=== PATIENT | male | born 1960 | race Caucasian/White ===

== ENCOUNTER → 2018-11-23 11:52 | Outpatient (CLI) | payer OTHER, SELFPAY ==
--- NOTE | 2018-11-23 11:54 | DI.MRI.S_ITS ---
PROCEDURE: MR BRAIN (IAC) WWO CON INDICATIONS: Memory problems TECHNIQUE: Noncontrast sagittal T1 spin echo, axial FLAIR, axial gradient echo, axial diffusion and ADC through the brain. Axial thin-slice 3D CISS, coronal TruFISP, axial T1 spin echo with fat saturation through the internal auditory canals. After the administration of contrast, thin slice axial and coronal T1 spin echo with fat saturation through the internal auditory canals, and axial T1 spin echo with fat saturation through the brain. COMPARISON: None. FINDINGS: Image quality: Excellent. Cerebellopontine angles: No cerebellopontine angle masses. Inner ear structures appear normally formed. No suspicious enhancement in the internal auditory canal or along the course of the 7th cranial nerve. CSF spaces: Ventricles are normal in size and shape. No extra-axial fluid collections. Basal cisterns are patent. Brain: No intracranial bleeds or mass effects. Espitia-white matter interface is intact. No abnormal intracranial enhancement. Diffusion weighted images demonstrate no acute ischemic insults. No GRE weighted abnormalities identified in the brain parenchyma. Brainstem appears normal. Normal intravascular flow voids are present. Skull and face: Calvarial marrow signal is normal. Orbits appear normal. Sinuses: Mild mucosal thickening noted in the left maxillary sinus, the sphenoid sinuses bilaterally and the posterior ethmoid air cells. The mastoids are clear. IMPRESSION: 1. No evidence of vestibular schwannoma. 2. No intracranial disease process. 3. No abnormal intracranial signal or suspicious postcontrast enhancement. 4. No abnormal intracranial mass. Dictated by: Faye Rees MD, PhD on 11/23/2018 at 15:49 Approved by: Faye Rees MD, PhD on 11/23/2018 at 16:03
--- NOTE | 2018-11-23 11:54 | DI.US.S_ITS ---
PROCEDURE: US SCROTUM INDICATIONS: RIGHT TESTICULAR SWELLING TECHNIQUE: Real-time scanning was performed of the scrotum and testicles, with image documentation. Color and pulse Doppler interrogation was performed of both testicles. COMPARISON: None. FINDINGS: Right: Testicle is normal in size at 2.3 x 3.2 x 4.7 cm, and homogenous in echotexture. Epididymis is normal in overall size and morphology. No significant hydrocele or varicoceles. Overlying scrotal skin is normal in thickness. Blood hydrocele incidentally noted. Left: Testicle is normal in size at 2.0 x 3.0 x 4.8 cm, and homogeneous in echotexture. Epididymis is normal in overall size and morphology. No significant hydrocele or varicoceles. Overlying scrotal skin is normal in thickness. Slight hydrocele incidentally noted and several cysts are present at the epididymal head area measuring up to 6 mm. Doppler: Color and pulse Doppler demonstrate normal and symmetric arterial flow in both testicles. IMPRESSION: No sign of testicular torsion or mass lesion. No sign of epididymitis or orchitis. Slight hydroceles bilaterally, insignificant in quantity. Dictated by: Blade Bajwa M.D. on 11/23/2018 at 16:42 Approved by: Blade Bajwa M.D. on 11/23/2018 at 16:44
== END ==
PROVIDERS: PCP Family Medicine; Visit Provider Family Medicine
DX: R41.3 Other amnesia (principal); N50.89 Other specified disorders of the male genital organs
CPT/HCPCS: 70553; 76870; A9579

== ENCOUNTER → 2018-12-18 08:30 | Outpatient (CLI) | payer OTHER, SELFPAY ==
[2018-12-18 09:48] LABS: Appearance Urine UA CLEAR; Bilirubin Urine UA NEGATIVE (NEGATIVE); Color Urine UA YELLOW; Glucose Urine UA NEGATIVE (Negative); Ketones Urine UA TRACE (NEGATIVE); Leukocyte Esterase Urine UA NEGATIVE (NEGATIVE); Nitrite Urine UA NEGATIVE (Negative); Occult Blood Urine UA NEGATIVE (Negative); Protein Urine UA NEGATIVE (Negative); Urobilinogen Urine UA 0.2 E.U./dL (0.2)
[2018-12-18 09:49] LABS: Add Manual Diff / Slide Review NO; Basophils Absolute Auto 0 /uL (0-100); Eosinophils Absolute Auto 200 /uL (0-450); Eosinophils Percent Auto 3.9 % (2-4); Hematocrit 47.6 % (41-53); Hemoglobin 16.3 g/dL (13.5-17.5); Lymphocytes Absolute Auto 1500 /uL (1100-4500); Lymphocytes Percent Auto 30.5 % (25-40); Mean Corpuscular HGB Conc 34.2 % (30-36); Mean Corpuscular Hemoglobin 30.8 PG (26-34); Mean Corpuscular Volume 89.8 fL (80-100); Monocytes Absolute Auto 400 /uL (0-900); Monocytes Percent Auto 8.6 % (3-14); Neutrophils Absolute Auto 2800 /uL (1500-7000); Platelet Count 182 X10^3/uL (150-400); Red Cell Distribution Width 13.4 % (11.6-14.8); White Blood Cell Count 4.9 X10^3/uL (4.5-11.0)
[2018-12-18 10:22] LABS: Alanine Aminotransferase 45 IU/L (21-72); Albumin 4.3 g/dL (3.5-5.0); Albumin Globulin Ratio 1.5 (1.0-2.8); Alkaline Phosphatase 72 U/L (38-126); Aspartate Aminotransferase 24 IU/L (17-59); BUN Creatinine Ratio 18.9 (6-22); Bilirubin Total 0.6 mg/dL (0.2-1.3); Blood Urea Nitrogen 17 mg/dL (9-20); Calcium 9.1 mg/dL (8.4-10.2); Carbon Dioxide 25 mmol/L (22-32); Chloride 105 mmol/L (98-107); Cholesterol 142 mg/dL (140-199); Estimated Glomerular Filt Rate > 60.0 mL/min (>60); Globulin 2.9 g/dL (1.7-4.1); Glucose 98 mg/dL (70-100); HDL Cholesterol 49 mg/dL (40-60); HEMOLYSIS < 15 (0-50); LDL Cholesterol Calculated 84 mg/dL (<100); Potassium 4.1 mmol/L (3.4-5.1); Sodium 140 mmol/L (137-145); Total Protein 7.2 g/dL (6.3-8.2); Triglycerides 43 mg/dL (35-150)
[2018-12-18 10:47] LABS: Thyroid Stimulating Hormone 3.71 uIU/mL (0.47-4.68)
[2018-12-18 11:20] LABS: Folate 15.7 ng/mL (2.76-20.0); Vitamin B12 692 pg/mL (239-931)
== END ==
PROVIDERS: PCP Family Medicine; Visit Provider Family Medicine
DX: N50.9 Disorder of male genital organs, unspecified (principal); R41.3 Other amnesia; R42 Dizziness and giddiness; N50.89 Other specified disorders of the male genital organs; Z13.220 Encounter for screening for lipoid disorders; Z13.29 Encounter for screening for other suspected endocrine disorder; Z51.81 Encounter for therapeutic drug level monitoring
CPT/HCPCS: 36415; 80053; 80061; 81003; 82607; 82746; 84443; 85025

== ENCOUNTER 2019-02-02 08:51 | Day surgery (SDC) | payer OTHER, SELFPAY ==
[2019-02-02 09:30] VITALS: BP 126/76; PULSE 64; RESP 16; TEMP 36.2; O2SAT 97; BMI 28.7
[2019-02-02] MEDS: PROPARACAINE 0.5% OPHTH SOL 2 DROPS EYE-OP (09:38)
[2019-02-02] MEDS: CATARACT EYE COMPOUND (10 DROPS/SYRINGE) 3 DROPS EYE-OP (09:44)
--- NOTE | 2019-02-02 10:30 | PM.PREOP ---
Pre-operative Note Interval Note History & Physical reviewed/Exam performed by Physician: No Changes to H&P: No
--- NOTE | 2019-02-02 10:31 | PM.OP.1 ---
Operative Date/Time/Diagnoses Pre-op diagnosis: Nuclear cataract right eye Procedure & Clinicians Procedure: Cataract Surgery Same procedure as scheduled: Yes Surgeon: Ricki Holden Anesthesia Type: MAC +/- and Sedation Operative Notes Procedure in detail: Patient brought to the operating suite. Tetracaine drops placed in the right eye. Patient was prepped and draped in sterile manner. Wire lid speculum was placed in the eye. Betadine drops were placed on the eye. This was irrigated. Lidocaine jelly was placed on the eye. A paracentesis port was created with a side-port blade. 0.1 mL 1% preservative free lidocaine was injected into the anterior chamber. The anterior chamber was deepened with viscoelastic. 2.6 mm keratome was used to create a temporal clear corneal incision. Cystotome and Utrata forceps were used to create continuous tear capsulorrhexis. Balanced salt solution was used to hydro dissect the nucleus. The phacoemulsification handpiece was inserted and the nucleus was removed using the stop and chop technique. The irrigation aspiration handpiece was inserted and the remaining cortex was removed. Anterior chamber was deepened with viscoelastic. An [place] ZCB00 intraocular lens with a power of 18.0 was injected into the capsular bag. Irrigation aspiration handpiece was inserted and the remaining viscoelastic was removed. Incision was hydrated with balanced salt solution and found to be leak free with pressure with Weck-Janel sponges. 0.1 mL Vigamox injected anterior chamber. 0.3 mL Kenalog 10 mg was injected subconjunctivally. Lid speculum was removed. The patient left the operating room in excellent condition. Complications: none Condition: stable Disposition: same day surgery
[2019-02-02] MEDS: MOXIFLOXACIN OPHTH DROPS 3 ML BOTTLE 2 DROPS INJ (11:11)
[2019-02-02] MEDS: PHENYLEPHRINE/LIDOCAINE VIAL (OR) 0.2 ML EYE-OP (11:11)
[2019-02-02] MEDS: TRIAMCINOLONE 50 MG/5 ML VIAL INJ (11:11)
[2019-02-02] MEDS: CHONDROIDTIN/SOD HYALURONATE 1.05 ML SYRINGE INTRAOCULA (11:11)
[2019-02-02] MEDS: TETRACAINE 0.5% OPHTH DROPS 4 ML 2 DROPS EYE-OP (11:14)
[2019-02-02] MEDS: LIDOCAINE JELLY 2% 5 ML 1 APPLIC TOP (11:14)
[2019-02-02] MEDS: BALANCED SALT IRRIG SOLN NO.2 500 ML, EPINEPHrine 1 MG IRR (11:15)
[2019-02-02 11:40] VITALS: BP 126/83; PULSE 55; RESP 16; TEMP 36.5; O2SAT 96
== END 2019-02-02 11:35 ==
LOC: OR 08:53
PROVIDERS: PCP Family Medicine; Visit Provider Ophthalmology
DX: H25.11 Age-related nuclear cataract, right eye (principal); G47.30 Sleep apnea, unspecified; G43.909 Migraine, unspecified, not intractable, without status migrainosus
CPT/HCPCS: J0171; J2250; J3301

== ENCOUNTER 2019-03-02 12:39 | Day surgery (SDC) | payer OTHER, SELFPAY ==
[2019-03-02 13:43] VITALS: BP 123/80; PULSE 71; RESP 16; TEMP 36.6; O2SAT 98; BMI 29.5
[2019-03-02] MEDS: PROPARACAINE 0.5% OPHTH SOL 2 DROPS EYE-OP (13:54)
[2019-03-02] MEDS: CATARACT EYE COMPOUND (10 DROPS/SYRINGE) 3 DROPS EYE-OP (13:59)
--- NOTE | 2019-03-02 14:40 | PM.PREOP ---
Pre-operative Note Interval Note History & Physical reviewed/Exam performed by Physician: No Changes to H&P: No
--- NOTE | 2019-03-02 14:40 | PM.OP.1 ---
Operative Date/Time/Diagnoses Pre-op diagnosis: Nuclear Cataract Left eye Post-op diagnosis: same Procedure & Clinicians Surgeon: Ricki Holden Anesthesia Type: MAC +/- and Sedation Operative Notes Procedure in detail: Patient brought to the operating suite. Tetracaine drops placed in the left eye. Patient was prepped and draped in sterile manner. Wire lid speculum was placed in the eye. Betadine drops were placed on the eye. This was irrigated. Lidocaine jelly was placed on the eye. A paracentesis port was created with a side-port blade. 0.1 mL 1% preservative free lidocaine was injected into the anterior chamber. The anterior chamber was deepened with viscoelastic. 2.6 mm keratome was used to create a temporal clear corneal incision. Cystotome and Utrata forceps were used to create continuous tear capsulorrhexis. Balanced salt solution was used to hydro dissect the nucleus. The phacoemulsification handpiece was inserted and the nucleus was removed using the stop and chop technique. The irrigation aspiration handpiece was inserted and the remaining cortex was removed. Anterior chamber was deepened with viscoelastic. An [place] ZCB00 intraocular lens with a power of 17.5 was injected into the capsular bag. Irrigation aspiration handpiece was inserted and the remaining viscoelastic was removed. Incision was hydrated with balanced salt solution and found to be leak free with pressure with Weck-Janel sponges. 0.1 mL Vigamox injected anterior chamber. 0.3 mL Kenalog 10 mg was injected subconjunctivally. Lid speculum was removed. The patient left the operating room in excellent condition. Complications: none Condition: stable Disposition: same day surgery
[2019-03-02] MEDS: CHONDROIDTIN/SOD HYALURONATE 1.05 ML SYRINGE INTRAOCULA (14:58)
[2019-03-02] MEDS: MOXIFLOXACIN OPHTH DROPS 3 ML BOTTLE 2 DROPS INJ (14:58)
[2019-03-02] MEDS: LIDOCAINE JELLY 2% 5 ML 1 APPLIC TOP (14:58)
[2019-03-02] MEDS: PHENYLEPHRINE/LIDOCAINE VIAL (OR) 0.2 ML EYE-OP (14:58)
[2019-03-02] MEDS: TRIAMCINOLONE 50 MG/5 ML VIAL INJ (14:59)
[2019-03-02] MEDS: BALANCED SALT IRRIG SOLN NO.2 500 ML, EPINEPHrine 1 MG IRR (14:59)
[2019-03-02] MEDS: TETRACAINE 0.5% OPHTH DROPS 4 ML 2 DROPS EYE-OP (14:59)
[2019-03-02 15:10] VITALS: BP 139/88; PULSE 63; RESP 16; TEMP 36.3; O2SAT 95
== END 2019-03-02 15:35 ==
LOC: OR 12:41
PROVIDERS: PCP Family Medicine; Visit Provider Ophthalmology
PROC: (CPT 66984; principal; 2019-03-02 14:45)
DX: H25.12 Age-related nuclear cataract, left eye (principal); G47.30 Sleep apnea, unspecified; G43.909 Migraine, unspecified, not intractable, without status migrainosus
CPT/HCPCS: 66984; J0171; J2250; J3010; J3301

== ENCOUNTER → 2019-04-02 09:34 | Outpatient (CLI) | payer OTHER, SELFPAY ==
--- NOTE | 2019-04-02 09:35 | DI.US.S_ITS ---
PROCEDURE: US ABDOMEN LIMITED INDICATIONS: LEFT UPPER QUADRANT PAIN TECHNIQUE: Real-time focused scanning was performed of the abdomen, with image documentation. COMPARISON: None. FINDINGS: No left upper quadrant ventral wall hernia or other abdominal abnormality seen. IMPRESSION: The left upper quadrant ventral wall hernia or other sonographic abnormalities. Dictated by: Tristin BRICEÑO Interpreted: Ching Robles MD on 04/02/2019 at 10:34 Approved by: Ching Robles M.D. on 04/02/2019 at 16:00
--- NOTE | 2019-04-02 09:35 | DI.RAD.S_ITS ---
PROCEDURE: XR CHEST 2V INDICATIONS: LUQ pain TECHNIQUE: 2 views of the chest were acquired. COMPARISON: None. FINDINGS: Surgical changes and devices: Fusion hardware lower cervical spine is seen. Lungs and pleura: Lungs are clear. No pleural effusions or pneumothorax. Mediastinum: Mediastinal contours are normal. Heart size is normal. Bones and chest wall: No suspicious bony abnormalities. Soft tissues appear unremarkable. IMPRESSION: No acute cardiopulmonary pathology. Dictated by: Valentin Montesinos M.D. on 04/02/2019 at 10:54 Approved by: Valentin Montesinos M.D. on 04/02/2019 at 10:58
--- NOTE | 2019-04-02 09:35 | DI.RAD.S_ITS ---
PROCEDURE: FL UPPER GI W AIR INDICATIONS: LUQ abdomianl pain COMPARISON: None. 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 No suspicious abdominal calcifications. Visualized solid organ contours appear normal. Bony structures appear unremarkable. Esophagus: Esophageal mucosa is normal on air-contrast views. On single-contrast views, there is normal esophageal peristalsis. No strictures, extrinsic mass effects, or diverticula. No hiatal hernia. Niis-ls-ygcayqkt gastroesophageal reflux is seen contrast refluxed to the mid esophageal lumen. There is normal transit of a calibrated barium tablet through the esophagus. Stomach: The stomach is normally distensible, with normal rugal fold thickness. No mucosal masses or ulcers. Pylorus and duodenal bulb appear normal in morphology. Duodenal folds are normal in thickness as well. IMPRESSION: Denu-xa-zpfawlud gastroesophageal reflux. Otherwise unremarkable double contrast upper GI series. Dictated by: Valentin Montesinos M.D. on 04/02/2019 at 11:17 Approved by: Valentin Montesinos M.D. on 04/02/2019 at 11:27
== END ==
PROVIDERS: PCP Family Medicine; Visit Provider Family Medicine
DX: R10.12 Left upper quadrant pain (principal); Z98.1 Arthrodesis status
CPT/HCPCS: 71046; 74247; 76705

== ENCOUNTER → 2019-04-26 15:02 | Outpatient (CLI) | payer OTHER, SELFPAY ==
[2019-04-26 17:07] LABS: Rubella Antibody IgG > 350.0 IU/mL (>15)
[2019-04-28 16:15] LABS: Rubeola Measles IgG > 300.00 AU/mL (< 25.00)
== END ==
PROVIDERS: PCP Family Medicine; Visit Provider Family Medicine
DX: Z11.59 Encounter for screening for other viral diseases (principal); Z71.89 Other specified counseling
CPT/HCPCS: 36415; 86735; 86762; 86765; 87522

== ENCOUNTER 2019-06-22 12:03 | Day surgery (SDC) | payer OTHER, SELFPAY ==
--- NOTE | 2019-06-22 | PATH_ITS ---
[facility] Accession Number: [id number] . 01 Material submitted: . PART A: colon - TRANSVERSE COLON POLYP PART B: colon - SIGMOID COLON POLYP . 02 Diagnosis: A. Transverse Colon, Polyp: Tubular adenoma. . B. Sigmoid Colon, Polyp: Tubular adenoma with extensive cautery artifact. V 06/23/2019 1437 Local . 02 Electronically signed: . Quentin Whatley MD, PhD, Pathologist NPI- [id number] . 01 Gross description: . Part A: TRANSVERSE COLON POLYP: Received in formalin are 2 fragment(s) of ochoa, soft tissue measuring 0.2 x 0.2 x 0.2 cm to 0.3 x 0.2 x 0.2 cm which is entirely submitted and submitted entirely in 1 cassette(s) Part B: SIGMOID COLON POLYP: Received in formalin is 1 fragment(s) of ochoa, soft tissue measuring 0.3 x 0.2 x 0.2 cm which is entirely submitted and submitted entirely in 1 cassette(s) /[facility] [place] 06/22/2019 2258 Local . 02 Pathologist provided ICD-10: D12.3, D12.5 . 02 CPT . 778203, 607480 Performed at: 01 [facility] [address] [facility], [place], [place] [id number] MD Kendall Brandt MD Phone: [phone] Performed at: 02 [facility] [address] [place], [place] [id number] MD Jo Willoughby MD Phone: [phone]
[2019-06-22 12:29] VITALS: BP 122/75; PULSE 59; RESP 14; TEMP 36.9; O2SAT 99; BMI 27.0
--- NOTE | 2019-06-22 13:09 | PM.HP.1 ---
History of Present Illness History of Present Illness Date Patient Seen: 06/22/19 Time Patient Seen: 13:09 Chief complaint: [id number] Narrative: 59-year-old man presents 12 years a status post last screening colonoscopy No first-degree relatives with colorectal cancer but does have 2 uncles with colorectal cancer diagnosed late in life No IBD Does have some -left upper quadrant tearing pain when he is gassy, he would like this region of his colon looked at carefully No bleeding Tolerated his prep well Patient History Medical History (Updated 06/22/19 @ 12:23 by Jo Holloway RN) BPH (benign prostatic hyperplasia) (Acute) GERD (gastroesophageal reflux disease) (Acute) YVON on CPAP (Acute) Surgical History History of tonsillectomy Status post discectomy Family History Child Trisomy 21 Mother Hypertension Social History household members: spouse Smoking Status: Never smoker Family & Social History Social History: household members spouse Tobacco & Substance use: Smoking Status Never smoker Meds Home Medications and Allergies Home Medications Medication Instructions Recorded Confirmed Type Prilosec OTC 20 mg PO Q DAY #0 08/31/12 06/22/19 History [CALCIUM W/ VITATMIND] 1 tab PO QDAY #0 09/16/12 06/22/19 History vitamin B complex 1 tab PO DAILY 12/16/18 06/22/19 History ibuprofen 200 mg PO Q4-6H PRN 02/02/19 06/22/19 History Respironics Remstar CPAP #1 ea 03/09/19 04/26/19 History Allergies Allergy/AdvReac Type Severity Reaction Status Date / Time No Known Drug Allergies Allergy Verified 04/26/19 13:51 Review of Systems Constitutional Constitutional: Denies fever(s) Eyes Eyes: Denies bulging eyes ENT Ears, Nose, Mouth, and Throat: No lip swelling Cardiovascular Cardiovascular: Denies generalize swelling Respiratory Respiratory: Denies stridor Gastrointestinal Gastrointestinal: Denies coffee ground emesis Musculoskeletal Musculoskeletal: Denies loss of height Integumentary/Breasts Skin/Breast: Denies wounds Neurologic Neurologic: Denies abnormal speech and Denies confusion Psychiatric Psychiatric: Denies confusion and Denies tactile hallucinations Endocrine Endocrine: Denies deepening of the voice Hematologic/Lymphatic Hematologic/Lymphatic: Denies lymphadenopathy Allergic/Immunologic Allergic/Immunologic: Denies lip swelling Exam Vital Signs (past 8 hours): - 06/22/19 12:29 Temperature 98.4 F Pulse Rate 59 L Respiratory Rate 14 Blood Pressure 122/75 Pulse Oximetry 99 Oxygen Delivery Method Room Air Const General: cooperative and healthy appearing Orientation: alert HENMT Head: normal to inspection Nose: nares normal Mouth: oral mucosae normal and lip normal Eyes Eyelids: eyelids normal Conjunctivae: conjunctivae normal Sclera: sclerae normal Neck Neck: supple and other (No thyromegally) Chest Chest: other (LCTAB , regular respiratory effort) Cardio Rhythm: regular rhythm Heart Sounds: S1 normal, S2 normal, no gallops, no murmurs and no rubs GI Other: Abdomen soft nontender nondistended Skin General: no rashes or lesions noted Neuro General: alert and awake Psych Appearance: grossly normal Affect: normal affect Assessment & Plan Assessment & Plan narrative: 59-year-old man presents for screening colonoscopy -2 years overdue Risks and benefits of procedure discussed. Risks including bleeding, perforation, , missed lesion, hypoxia all discussed All questions answered Patient ready to proceed
[2019-06-22] MEDS: GLUCAGON,HUMAN RECOMBINANT 1 MG/ML VIAL IV (13:52)
--- NOTE | 2019-06-22 13:55 | PM.OP.1 ---
Operative Date/Time/Diagnoses Date of procedure: 06/22/19 Time of procedure: 13:55 Pre-op diagnosis: Screening colonoscopy Post-op diagnosis: same Procedure & Clinicians Procedure: Screening colonoscopy-complete Cold biopsy forcep polypectomy x1 Hot snare polypectomy x1 with submucosal injection Same procedure as scheduled: Yes Indications: 59-year-old man status post last colonoscopy 12 years ago due for screening colonoscopy. No 1st degree family members with colon or rectal cancer, no personal history of colon polyps Surgeon: Juancarlos Nation Click Yes if Unassisted: Yes Operative Notes Findings: Moderate sigmoid diverticulosis Small sessile polyp in the transverse colon status post removal Moderate size sessile polyp in the sigmoid colon status post removed Closure Type: not applicable Specimen(s): other (Transverse colon polyp, sigmoid colon polyp) Procedure in detail: Patient was brought to the endoscopy suite, a time-out was complete. He was sedated over the entire course of the procedure with 175 micro g of fentanyl and 7 mg of midazolam. A digital rectal exam was performed without lesions. 160 cm colonoscope was advanced to the folds of the rectum and colon until the cecum was reached. The colon was not unduly tortuous. The cecum was identified via the appendiceal orifice as well as a prominent ileocecal valve. It was then slowly withdrawn inspecting the mucosa of the colon carefully. A small sessile polyp was identified in the transverse colon this was removed with a biopsy forcep. At 60 cm within the sigmoid colon a sessile polyp was identified, moderate size. Because of its location adjacent to a colonic fold using a endoscopy needle [id number] epinephrine was injected within the submucosal space elevating the lesion. The lesion was then snared and removed via suction trap. The base of the polyp was cauterized to ablate any deeper adenomatous tissue -due to the submucosal injection I felt safe doing this. The scope was then removed further a moderate amount of sigmoid diverticulosis was identified. The scope was retroflexed in the rectum and no additional lesions were seen Prep was adequate Complications: none Post-operative Condition: stable Disposition: PACU Plan for aftercare: Follow-up in 5 years for repeat colonoscopy unless both polyps are hyperplastic. If both polyps are hyperplastic follow-up in 10 years
[2019-06-22] MEDS: fentaNYL 250 MCG/5 ML INJ IV (14:00)
[2019-06-22] MEDS: MIDAZOLAM 5 MG/5 ML VIAL IV (14:01)
[2019-06-22] MEDS: EPINEPHrine 1 MG/ML AMPUL SUBCUT (14:01)
[2019-06-22 14:03] VITALS: BP 125/81; PULSE 66; RESP 11; TEMP 37.1; O2SAT 96
[2019-06-22 14:12] VITALS: BP 128/65; PULSE 66; RESP 13; O2SAT 94
[2019-06-22 14:17] VITALS: BP 123/71; PULSE 74; RESP 18; TEMP 37.1; O2SAT 94
[2019-06-22 14:21] VITALS: BP 126/73; PULSE 62; RESP 14; TEMP 36.8; O2SAT 98
[2019-06-22 14:41] VITALS: BP 121/78; PULSE 67; RESP 16; TEMP 36.7; O2SAT 99
== END 2019-06-22 14:45 | disposition home or self-care (01) ==
PROVIDERS: PCP Family Medicine; Visit Provider Surgery
PROC: 0DJD8ZZ Inspection of Lower Intestinal Tract, Via Natural or Artificial Opening Endoscopic (ICD-10-PCS; CPT 45378; principal; 2019-06-22 13:00)
DX: Z12.11 Encounter for screening for malignant neoplasm of colon (principal); N40.0 Benign prostatic hyperplasia without lower urinary tract symptoms; G47.33 Obstructive sleep apnea (adult) (pediatric); K57.30 Diverticulosis of large intestine without perforation or abscess without bleeding; D12.5 Benign neoplasm of sigmoid colon; D12.3 Benign neoplasm of transverse colon
CPT/HCPCS: 45381; 45385; 45380; J0171; J1610; J2250; J3010

== ENCOUNTER → 2021-01-10 08:43 | Outpatient (CLI) | payer OTHER, SELFPAY ==
[2021-01-10] MEDS: COVID-19 VACC #1, MRNA(MOD) 100 MCG/0.5 ML VIAL IM (08:49)
== END ==
PROVIDERS: PCP Family Medicine; Visit Provider Internal Medicine
DX: Z23 Encounter for immunization (principal)
CPT/HCPCS: 0011A; 91301

== ENCOUNTER → 2021-02-07 08:43 | Outpatient (CLI) | payer OTHER, SELFPAY ==
[2021-02-07] MEDS: COVID-19 VACC #2, MRNA(MOD) 100 MCG/0.5 ML VIAL IM (08:51)
== END ==
PROVIDERS: PCP Family Medicine; Visit Provider Internal Medicine
DX: Z23 Encounter for immunization (principal)
CPT/HCPCS: 0012A; 91301

== ENCOUNTER → 2023-01-09 15:41 | Outpatient (CLI) | payer OTHER, SELFPAY ==
--- NOTE | 2023-01-09 15:42 | DI.US.S_ITS ---
PROCEDURE: US EXTREMITY NONVASC UPPER LT INDICATIONS: LEFT POSTERIOR SHOULDER LUMP TECHNIQUE: Real-time scanning was performed of the left shoulder, with image documentation. COMPARISON: None. FINDINGS: Focused ultrasound examination of posterior left shoulder area at patient's reported area of palpable lump shows a 5.4 x 0.9 x 5.1 cm well-circumscribed solid-appearing structure in subcutaneous soft tissue and is isoechoic to adjacent subcutaneous fat. No internal vascularity is seen. IMPRESSION: Finding most likely represent benign lipoma in left posterior shoulder soft tissue. Dictated by: Valentin Montesinos M.D. on 01/09/2023 at 16:33 Approved by: Valentin Montesinos M.D. on 01/09/2023 at 16:34
== END ==
PROVIDERS: PCP Family Medicine; Referring Provider Nurse Practitioner Family; Visit Provider Nurse Practitioner Family
DX: R22.32 Localized swelling, mass and lump, left upper limb (principal)
CPT/HCPCS: 76882

== ENCOUNTER → 2023-03-13 09:13 | Outpatient (CLI) | payer OTHER, SELFPAY ==
[2023-03-13 10:38] LABS: Alanine Aminotransferase 31 IU/L (<50); Albumin Globulin Ratio 1.5 (1.0-2.8); Alkaline Phosphatase 80 U/L (38-126); Aspartate Aminotransferase 27 IU/L (17-59); BUN Creatinine Ratio 23.4 (6-22); Bilirubin Total 0.9 mg/dL (0.2-1.3); Blood Urea Nitrogen 18 mg/dL (9-20); Calcium 8.9 mg/dL (8.4-10.2); Carbon Dioxide 29 mmol/L (22-32); Chloride 103 mmol/L (98-107); Cholesterol 150 mg/dL (140-199); Estimated Glomerular Filt Rate > 60 mL/min (>60); Globulin 2.6 g/dL (1.7-4.1); Glucose 90 mg/dL (80-110); HDL Cholesterol 59 mg/dL (40-60); HEMOLYSIS < 15 (0-50); LDL Cholesterol Calculated 83 mg/dL (<100); Potassium 4.2 mmol/L (3.4-5.1); Sodium 137 mmol/L (137-145); Total Protein 6.6 g/dL (6.3-8.2); Triglycerides 41 mg/dL (35-150)
[2023-03-13 10:45] LABS: Add Manual Diff / Slide Review NO; Basophils Absolute Auto 0 /uL (0-100); Eosinophils Absolute Auto 100 /uL (0-450); Eosinophils Percent Auto 2.5 % (2-4); Hematocrit 43.7 % (41-53); Hemoglobin 15.3 g/dL (13.5-17.5); Lymphocytes Absolute Auto 1300 /uL (1100-4500); Lymphocytes Percent Auto 31.8 % (25-40); Mean Corpuscular HGB Conc 35.1 % (30-36); Mean Corpuscular Hemoglobin 30.6 PG (26-34); Mean Corpuscular Volume 87.3 fL (80-100); Monocytes Absolute Auto 300 /uL (0-900); Monocytes Percent Auto 7.9 % (3-14); Neutrophils Absolute Auto 2300 /uL (1500-7000); Neutrophils Percent Auto 56.8 % (50-75); Platelet Count 164 X10^3/uL (150-400); Red Blood Cell Count 5.01 X10^6/uL (4.5-5.9); Red Cell Distribution Width 13.2 % (11.6-14.8)
[2023-03-14 06:44] LABS: x Labcorp Estim. Avg Glu (eAG) 105 mg/dL (.); x Labcorp Hemoglobin A1c 5.3 % (4.8-5.6)
== END ==
PROVIDERS: PCP Family Medicine; Referring Provider Family Medicine; Visit Provider Family Medicine
DX: Z00.00 Encounter for general adult medical examination without abnormal findings (principal); N40.0 Benign prostatic hyperplasia without lower urinary tract symptoms; K21.9 Gastro-esophageal reflux disease without esophagitis
CPT/HCPCS: 36415; 80053; 80061; 83036; 84153; 85025

== ENCOUNTER → 2024-08-13 08:59 | Outpatient (CLI) | payer MEDICARE, OTHER, SELFPAY ==
[2024-08-13 09:55] LABS: Add Manual Diff / Slide Review NO; Basophils Absolute Auto 100 /uL (0-100); Basophils Percent Auto 0.8 % (0-2); Eosinophils Absolute Auto 100 /uL (0-450); Hematocrit 44.9 % (41-53); Hemoglobin 15.7 g/dL (13.5-17.5); Lymphocytes Absolute Auto 1500 /uL (1100-4500); Lymphocytes Percent Auto 24.3 % (25-40); Mean Corpuscular HGB Conc 34.9 % (30-36); Mean Corpuscular Hemoglobin 30.9 PG (26-34); Mean Corpuscular Volume 88.5 fL (80-100); Monocytes Absolute Auto 600 /uL (0-900); Monocytes Percent Auto 8.9 % (3-14); Neutrophils Absolute Auto 4100 /uL (1500-7000); Platelet Count 198 X10^3/uL (150-400); Red Blood Cell Count 5.07 X10^6/uL (4.5-5.9); Red Cell Distribution Width 13.1 % (11.6-14.8); White Blood Cell Count 6.3 X10^3/uL (4.5-11.0)
[2024-08-13 09:58] LABS: Hemoglobin A1C% w Est Avg Glu 5.1 % (4.0-6.0)
[2024-08-13 11:02] LABS: Alanine Aminotransferase 23 IU/L (<50); Albumin 4.2 g/dL (3.5-5.0); Albumin Globulin Ratio 1.9 (1.0-2.8); Alkaline Phosphatase 78 U/L (38-126); Aspartate Aminotransferase 27 IU/L (17-59); BUN Creatinine Ratio 27.3 (6-22); Bilirubin Total 0.8 mg/dL (0.2-1.3); Blood Urea Nitrogen 21 mg/dL (9-20); Calcium 9.4 mg/dL (8.4-10.2); Carbon Dioxide 26 mmol/L (22-32); Chloride 105 mmol/L (98-107); Cholesterol 149 mg/dL (140-199); Estimated Glomerular Filt Rate > 60 mL/min (>60); Globulin 2.2 g/dL (1.7-4.1); Glucose 86 mg/dL (80-110); HDL Cholesterol 58 mg/dL (40-60); HEMOLYSIS < 15 (0-50); LDL Cholesterol Calculated 77 mg/dL (<100); Potassium 4.5 mmol/L (3.4-5.1); Sodium 136 mmol/L (137-145); Total Protein 6.4 g/dL (6.3-8.2); Triglycerides 72 mg/dL (35-150)
[2024-08-13 11:26] LABS: Prostate Specific Antigen Scrn 2.66 ng/mL (0.1-4.0)
== END ==
PROVIDERS: PCP Family Medicine; Referring Provider Family Medicine; Visit Provider Family Medicine
DX: Z00.00 Encounter for general adult medical examination without abnormal findings (principal); G47.33 Obstructive sleep apnea (adult) (pediatric); Z12.5 Encounter for screening for malignant neoplasm of prostate; N40.0 Benign prostatic hyperplasia without lower urinary tract symptoms
CPT/HCPCS: 36415; 80053; 80061; 83036; 85025; G0103

== ENCOUNTER 2024-09-29 08:36 | Day surgery (SDC) | payer MEDICARE, OTHER, SELFPAY ==
--- NOTE | 2024-09-29 | PATH_ITS ---
[facility] Accession Number: [id number] No. of containers..03 Tissue . 01 Material submitted: . PART A: colon - ASCENDING POLYP PART B: colon - SIGMOID POLYP PART C: rectum - RECTAL POLYP . 01 Diagnosis: A. ASCENDING COLON POLYP: Sessile serrated adenoma. . B. SIGMOID COLON POLYP: Tubular adenoma. . C. RECTAL POLYP: Tubular adenoma. MRV 10/01/2024 1419 Local . 01 Electronically signed: . Quentin Whatley MD, PhD, Pathologist NPI- [id number] . 01 Gross description: . A. Received in formalin with two patient identifiers and ascending polyp, is a single ochoa soft tissue fragment, 0.9 cm in greatest dimension, submitted in A1. B. Received in formalin with two patient identifiers and sigmoid polyp, is a single ochoa and brown soft tissue fragment, 0.6 cm in greatest dimension, submitted in B1. C. Received in formalin with two patient identifiers and rectal polyp, are two ochoa soft tissue fragments, both measuring 0.3 cm in greatest dimension, submitted in C1. ([id number]) /MRV 09/30/2024 1813 Local . 01 Pathologist provided ICD-10: D12.6, D12.8 . 01 CPT . 349362, 813790, 573472 Specimen Comment: A courtesy copy of this report has been sent to [facility] Pathology Performed at: [address] [id number] MD Kendall Brandt MD Phone: [phone]
[2024-09-29 09:28] VITALS: BP 139/84; PULSE 57; RESP 16; TEMP 36.5; O2SAT 95
--- NOTE | 2024-09-29 10:21 | P.HP_ITS ---
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) Nocturnal hypoxemia Cervical fusion syndrome Obstructive sleep apnea BPH (benign prostatic hyperplasia) GERD (gastroesophageal reflux disease) Surgical History Status post discectomy History of tonsillectomy Family History Child Age: 25 Trisomy 21 Mother Hypertension Social History household members: spouse Smoking Status: Never smoker alcohol intake: current substance use type: does not use Meds Home Medications and Allergies Home Medications Medication Instructions Recorded Confirmed Type omeprazole magnesium 20 mg 20 mg PO Q DAY ##0 08/31/12 09/29/24 History tablet,delayed release (Prilosec OTC) [CALCIUM W/ VITATMIND] 1 tab PO QDAY ##0 09/16/12 09/29/24 History cholecalciferol (vitamin D3) 25 25 mcg PO DAILY 02/28/21 09/29/24 History mcg (1,000 unit) capsule coenzyme Q10 75 mg capsule (Ultra 75 mg PO DAILY 02/28/21 09/29/24 History CoQ10) multivitamin 0.5 tab PO DAILY 02/28/21 09/29/24 History tumeric 1 tab PO DAILY 02/28/21 09/29/24 History Respironics Dreamstation CPAP #1 ea 03/21/22 08/13/24 History tamsulosin 0.4 mg capsule 0.8 mg (2 x 0.4 mg) PO BEDTIME 06/15/24 09/29/24 Rx #180 caps sodium,potassium,mag sulfates 17.5 See Rx Instructions PO .COMPLEX 09/02/24 Rx gram-3.13 gram-1.6 gram oral soln #354 mL (Suprep Bowel Prep Kit) Allergies Allergy/AdvReac Type Severity Reaction Status Date / Time No Known Drug Allergies Allergy Verified 09/29/24 09:19 Review of Systems Review of Systems ROS: Yes All systems reviewed with the patient and are negative except as otherwise documented Exam Vital Signs (past 8 hours): - 09/29/24 09:28 Temperature 97.7 F Pulse Rate 57 L Respiratory Rate 16 Blood Pressure 139/84 Pulse Oximetry 95 Oxygen Delivery Method Room Air Oxygen Delivery Method Room Air Narrative Exam Narrative: Gen: NAD, sitting comfortably in bed, appears well HEENT: Sclera are anicteric, head is normocephalic and atraumatic, trachea is midline. CV: RRR, no JVD Resp: clear to auscultation bilaterally, equal chest wall movement bilaterally Abd: soft, nontender, normoactive bowel sounds Ext: no edema, full range of motion Neuro: Cranial nerves II-XII grossly intact, no focal deficits Skin: No erythema or ecchymosis Assessment & Plan Assessment and plan (1) Personal history of colonic polyps: Status: Acute Assessment & Plan narrative: Patient presents for initial screening colonoscopy Risks, benefits, alternatives to colonoscopy explained, including but not limite d to bowel perforation or other serious complication requiring surgery at less than 1 in 5000 colonoscopies, abdominal pain, cramping or bleeding and less than 1% of colonoscopies, and the chances that we find a diagnosis that would require further intervention of about 2%. Patient agrees to proceed. Time-Based Coding :: [TOTAL MINUTES] spent with patient and on the chart (including review of chart, obtaining history, exam, reviewing outside data, placing orders, documenting exam and treatment plan, and counseling patient) on [DATE].
--- NOTE | 2024-09-29 10:43 | P.OP.COLON_ITS ---
Operative Date/Time/Diagnoses Date of procedure: 09/29/24 Time of procedure: 10:43 Pre-op diagnosis: Personal history of polyps Post-op diagnosis: same Procedure & Clinicians Study performed: Colonoscopy with snare polypectomy x3 Same procedure as scheduled: Yes Indications: Personal history of polyps Surgeon: Raf Goldstein Procedure Notes SCOAP/Timeout: Performed Procedure in detail: Time-out was performed. Mac was induced. Patient was placed in left lateral decubitus position. The perineum was inspected without any gross abnormality. Lubricated pediatric colonoscope was inserted and advanced to the cecum. The terminal ileum was intubated. The colonoscope was withdrawn slowly inspecting the circumference of the colon. Cold snare polypectomy was used to completely remove polyps in the ascending, sigmoid and rectum. They were all retrieved and completely removed. Very small polyps may have been missed, prep quality was adequate. Retroflexed view of the rectum showed small, non prolapsed nonbleed ing internal hemorrhoids. The scope was withdrawn the patient was taken to PACU in good condition. Scope withdrawal time: 10 Sedation minutes: 14 Findings: divertiulosis Specimen(s): other (1. Ascending 2. Sigmoid 3. Rectum) Complications: none Impression: Benign-appearing polyps Post-procedure Recommendations: Colonoscopy in 3 years Plan for aftercare: Home Follow up: as needed Disposition: PACU
[2024-09-29 10:47] VITALS: BP 105/67; PULSE 51; RESP 14; TEMP 37.1; O2SAT 96
[2024-09-29 10:53] VITALS: BP 115/66; PULSE 50; RESP 15; TEMP 37.1; O2SAT 96
[2024-09-29 10:58] VITALS: BP 127/76; PULSE 57; RESP 18; TEMP 37.1; O2SAT 99
== END 2024-09-29 11:11 | disposition home or self-care (01) ==
PROVIDERS: PCP Family Medicine; Referring Provider Surgery; Visit Provider Surgery
PROC: 0DJD8ZZ Inspection of Lower Intestinal Tract, Via Natural or Artificial Opening Endoscopic (ICD-10-PCS; CPT 45378; principal; 2024-09-29 10:00)
DX: Z12.11 Encounter for screening for malignant neoplasm of colon (principal); Z86.0100 Personal history of colon polyps, unspecified; K57.30 Diverticulosis of large intestine without perforation or abscess without bleeding; K64.8 Other hemorrhoids; D12.2 Benign neoplasm of ascending colon; D12.5 Benign neoplasm of sigmoid colon; D12.8 Benign neoplasm of rectum
CPT/HCPCS: 45385; J2704